=== PATIENT | female | born 1950 | race Caucasian/White ===

== ENCOUNTER 2023-03-09 07:26 | Inpatient (IN) | payer OTHER ==
[2023-02-25 12:16] VITALS: BMI 36.6
[2023-03-09] MEDS ORDERED: TRANEXAMIC ACID 1000 MG/10 ML VIAL IVPUSH ONE (08:34)
[2023-03-09] MEDS ORDERED: BUPIVACAINE HCL/PF 0.5% (5MG/ML) 10 ML VIAL ONE (09:59)
[2023-03-09] MEDS ORDERED: ACETAMINOPHEN INJECTION 100 ML IVPB ONE (09:59)
[2023-03-09] MEDS ORDERED: MIDAZOLAM HCL 2 MG/2 ML SINGLE DOSE VIAL ONE (09:59)
[2023-03-09] MEDS ORDERED: BUPIVACAINE LIPOSOME/PF (EXPAREL) 266 MG/20 ML VIAL ONE (09:59)
[2023-03-09] MEDS ORDERED: TRANEXAMIC ACID 1000 MG/10 ML VIAL ONE ×2 (10:30→11:48)
[2023-03-09] MEDS ORDERED: ceFAZolin SODIUM 1 GM VIAL ONE ×2 (10:30)
[2023-03-09] MEDS ORDERED: PROPOFOL 20 ML ONE ×2 (10:35→11:31)
[2023-03-09] MEDS ORDERED: MAG HYDROX/AL HYDROX/SIMETH 30 ML UNIT-DOSE CUP PO PRN (13:10)
[2023-03-09] MEDS ORDERED: MAGNESIUM HYDROX 2400MG/30ML ORAL SUSPENSION 30 ML CUP PO PRN (13:10)
[2023-03-09] MEDS ORDERED: oxyCODONE HCL 5 MG TABLET PO PRN (13:19)
[2023-03-09] MEDS ORDERED: LACTATED RINGERS SOLUTION 1,000 ML IV SCH (13:45)
[2023-03-09] MEDS ORDERED: FENTANYL CITRATE/PF 50 MCG/ML VIAL ONE ×2 (13:57→14:45)
[2023-03-09] MEDS ORDERED: ONDANSETRON 4 MG/2 ML VIAL ONE (14:22)
[2023-03-09] MEDS: INSULIN ASPART SLIDING SCALE (NOVOLOG) 1 VIAL SQ SCH ×2 (17:23→21:32)
[2023-03-09] MEDS: oxyCODONE HCL 5 MG TABLET PO PRN ×2 (17:38→23:59)
[2023-03-09] MEDS: CEFAZOLIN SODIUM 2 GM in DEXTROSE 5%-WATER 100 ML IVPB SCH (17:38)
[2023-03-09] MEDS: metFORMIN HCL 500 MG TABLET (FP) PO SCH (17:39)
[2023-03-09] MEDS: ACETAMINOPHEN 1000 MG/100 ML BAG IVPB SCH (18:42)
[2023-03-09] MEDS: ONDANSETRON 4 MG/2 ML VIAL IVPUSH PRN (20:39)
[2023-03-09 20:44] VITALS: RESP 18
[2023-03-09] MEDS: DEXAMETHASONE 4 MG TABLET (FP) PO SCH (21:50)
[2023-03-09] MEDS: FAMOTIDINE 20 MG TABLET PO SCH (21:50)
[2023-03-09] MEDS: SENNOSIDES/DOCUSATE COMBO (SENNA PLUS) TABLET (UD) PO SCH (21:51)
[2023-03-09] MEDS: ASPIRIN 81 MG CHEWABLE TABLETS PO SCH (21:51)
[2023-03-09] MEDS ORDERED: TRANEXAMIC ACID 1000 MG/10 ML VIAL IVPB ONE (22:00)
[2023-03-09] MEDS ORDERED: ATORVASTATIN CA 20 MG TABLET (FP) PO SCH (22:00)
[2023-03-09] MEDS ORDERED: DEXAMETHASONE 4 MG TABLET (FP) PO SCH (22:00)
[2023-03-10] MEDS: CEFAZOLIN SODIUM 2 GM in DEXTROSE 5%-WATER 100 ML IVPB SCH (01:49)
[2023-03-10] MEDS: ONDANSETRON 4 MG/2 ML VIAL IVPUSH PRN ×2 (02:12→06:56)
[2023-03-10] MEDS: ACETAMINOPHEN 1000 MG/100 ML BAG IVPB SCH (02:55)
[2023-03-10] MEDS: INSULIN ASPART SLIDING SCALE (NOVOLOG) 1 VIAL SQ SCH (06:57)
[2023-03-10] MEDS ORDERED: VALSARTAN 160 MG TABLET PO SCH (10:00)
[2023-03-10] MEDS ORDERED: MULTIVITAMINS (DAILY MVI) TABLET (FP) PO SCH (10:00)
[2023-03-10] MEDS ORDERED: TRANEXAMIC ACID 1000 MG/10 ML VIAL IVPB ONE (10:00)
[2023-03-10] MEDS ORDERED: amLODIPine BESYLATE 5 MG TABLET (FP) PO SCH (10:00)
[2023-03-10] MEDS: FAMOTIDINE 20 MG TABLET PO SCH (10:01)
[2023-03-10] MEDS: ASPIRIN 81 MG CHEWABLE TABLETS PO SCH (10:01)
[2023-03-10] MEDS: SENNOSIDES/DOCUSATE COMBO (SENNA PLUS) TABLET (UD) PO SCH (10:02)
[2023-03-10] MEDS: DEXAMETHASONE 4 MG TABLET (FP) PO SCH (10:02)
[2023-03-10] MEDS: metFORMIN HCL 500 MG TABLET (FP) PO SCH (10:04)
[2023-03-10 15:23] VITALS: BP 131/55; PULSE 69; TEMP 98.3
== END 2023-03-10 16:49 | disposition home or self-care (01) | DRG 302 ==
LOC: FASU 07:26 → FM/S 13:17
PROVIDERS: ADMIT Orthopaedic Surgery; ATTEND Orthopaedic Surgery
PROC: 0SRC0J9 Replacement of Right Knee Joint with Synthetic Substitute, Cemented, Open Approach (ICD-10-PCS; principal; 2023-03-09 10:49)
DX: M17.11 Unilateral primary osteoarthritis, right knee (principal); M24.661 Ankylosis, right knee; I10 Essential (primary) hypertension; E78.5 Hyperlipidemia, unspecified; E11.9 Type 2 diabetes mellitus without complications; M54.50 Low back pain, unspecified; M17.12 Unilateral primary osteoarthritis, left knee; E66.3 Overweight; Z68.36 Body mass index [BMI] 36.0-36.9, adult
CPT/HCPCS: 73560-TC-RT-FY; 82962; 94760; 97010-GP; 97116-GP; 97162-GP; C1889